=== PATIENT | female | born 1965 | race Caucasian/White ===

== ENCOUNTER → 2017-11-13 | Outpatient (CLI) | payer OTHER ==
--- NOTE | 2017-11-13 15:27 | RADIOLOGY IMAGING REPORT ---
FACILITY: [facility] [place] PATIENT NAME: Lelia Medrano : 1965 MR: [id number] V: [id number] EXAM DATE: ORDERING PHYSICIAN: JEMMA LAKHANI TECHNOLOGIST: Location: [facility] Patient: Lelia Medrano : 1965 Visit/Account:[id number] Date of Sevice: 11/13/2017 US SINGLE ORGAN, right lower quadrant HISTORY: [place] lump in right lower quadrant and right mid abdomen Multiple sonographic images were submitted of the right lower quadrant and right periumbilical region both with and without a Valsalva maneuver. There is no demonstration of an abdominal wall hernia in this location. No evidence of a subcutaneous mass or abnormal collection. IMPRESSION: No demonstration of an abdominal wall hernia, abnormal mass or collection in the right periumbilical anterior abdominal wall and right lower quadrant Report Dictated By: Sanjuana Dan MD at 11/13/2017 3:20 PM Report E-Signed By: Sanjuana Dan MD at 11/13/2017 3:23 PM WSN:[email or web address]
== END ==
LOC: US 14:19
PROVIDERS: ATTEND Physician Assistant Medical
DX: K46.9 Unspecified abdominal hernia without obstruction or gangrene (principal)
CPT/HCPCS: 76705

== ENCOUNTER → 2017-12-10 | Outpatient (CLI) | payer OTHER ==
[~2017-12-10] MED LIST: IOPAMIDOL 76% 75 ML INFUS BTL 75 ML ONE
--- NOTE | 2017-12-10 14:00 | RADIOLOGY IMAGING REPORT ---
FACILITY: [facility] PATIENT NAME: Lelia Medrano : 1965 MR: [id number] V: [id number] EXAM DATE: ORDERING PHYSICIAN: JEMMA LAKHANI TECHNOLOGIST: Location: [facility] [place] Patient: Lelia Medrano : 1965 Visit/Account:[id number] Date of Sevice: 12/10/2017 ABDOMEN/PELVIS W/WO CONTRAST HISTORY: Abdominal pain, right lower quadrant pain after heavy lifting, patient heard a "pop"'s in h er abdomen TECHNIQUE: Axial images acquired through the abdomen/pelvis both with and without IV contrast.. Brandie nal and sagittal reformatting also performed. Dose Lowering Technique One of the following dose optimization techniques was utilized in the performance of this exam: Autom ated exposure control; adjustment of the mA and/or kV according to the patient's size; or use of an i terative reconstruction technique. Specific details can be referenced in the facility's radiology C T exam operational policy. CONTRAST: 75 mL Isovue-370 COMPARISON: Ultrasound November 13, 2017 FINDINGS: Visualized lung bases: Negative. Hepatobiliary: Negative. Spleen: Negative. Adrenals: Negative. Pancreas: Negative. Kidneys ureters and bladder: Negative. Genitalia: Mildly heterogeneous myometrium GI: No evidence of bowel obstruction bowel wall thickening. The appendix is visualized and does not appear inflamed. Vessels/spaces/nodes: Minimal vascular calcifications Bones/soft tissues: There is a tiny umbilical hernia containing fat Additional findings: There are tiny bilateral inguinal hernias containing fat, left greater than rig ht. No evidence of a ventral hernia. There is thinning of the rectus sheath in the midline just bel ow the level the umbilicus There are moderate spondylotic changes L5-S1 IMPRESSION: There are tiny bilateral inguinal hernias containing fat, left greater than right Tiny umbilical hernia containing fat Thinning of the rectus sheath in the midline just below the level the umbilicus Mildly heterogeneous myometrium. If of concern pelvic ultrasound may be helpful Report Dictated By: Sanjuana Dan MD at 12/10/2017 1:46 PM Report E-Signed By: Sanjuana Dan MD at 12/10/2017 1:56 PM WSN:[email or web address]
== END ==
LOC: CT 00:46
PROVIDERS: ATTEND Physician Assistant Medical
DX: K40.90 Unilateral inguinal hernia, without obstruction or gangrene, not specified as recurrent (principal); K42.9 Umbilical hernia without obstruction or gangrene
CPT/HCPCS: 74178; Q9967